=== PATIENT | female | born 1985 | race Caucasian/White ===

== ENCOUNTER 2019-06-07 00:15 | Observation (INO) ==
[2019-06-07 02:14] LABS: Amphetamine Screen,Urine Negative ng/mL (Cutoff=1000); Barbiturate Screen,Urine Negative ng/mL (Cutoff=200); Benzodiazepines Screen,Urine Negative ng/mL (Cutoff=200); Cannabinoid Screen,Urine Negative ng/mL (Cutoff = 50); Cocaine Screen,Urine Negative ng/mL (Cutoff= 300); Opiate Screen,Urine Negative ng/mL (Cutoff=300); Phencyclidine Screen,Urine Negative ng/mL (Cutoff=25)
--- NOTE | 2019-06-07 02:40 | OB/GYN Progress Note ---
Date of Encounter: 06/07/19 Time of Encounter: 02:38 - Assessment and Plan (1) 37 weeks gestation of Current Visit: Yes Status: Acute (2) False labor Current Visit: No Status: Acute No cervical change on serial cervical exams. Patient discharged home with labor and when to return to triage precautions. Patient verbalizes understanding and is in agreement with plan (3) NST (non-stress test) reactive Current Visit: No Status: Acute Baseline 120 Subjective - Subjective Interval history: 37 weeks gestation presents to triage with complaints of contractions. Patient states she is continued have contractions over the last few days increasing in strength and intensity this evening. Reports good movement, denies vaginal bleeding or leaking of fluid. Antepartum ROS: movement normal, contractions, no loss of fluid, no vaginal bleeding Objective - Vital Signs Vital Signs: Intake and Output 06/06/19 06/06/19 06/07/19 15:59 23:59 07:59 Other: Weight 127.913 kg Patient Weight 06/07/19 23:59 Weight 127.913 kg - Exam FHR: auscultation normal FHR comments: Baseline 120 Abdomen: Present: soft, gravid Cervical dilation: 4-5/60/-1
== END 2019-06-07 02:42 | disposition home or self-care (01) ==
LOC: 1NENULAB
PROVIDERS: ADMIT Advanced Practice Midwife; ATTEND Advanced Practice Midwife

== ENCOUNTER 2019-06-08 17:34 | Observation (INO) ==
[2019-06-08 18:49] LABS: Amphetamine Screen,Urine Negative ng/mL (Cutoff=1000); Barbiturate Screen,Urine Negative ng/mL (Cutoff=200); Benzodiazepines Screen,Urine Negative ng/mL (Cutoff=200); Cannabinoid Screen,Urine Negative ng/mL (Cutoff = 50); Cocaine Screen,Urine Negative ng/mL (Cutoff= 300); Opiate Screen,Urine Negative ng/mL (Cutoff=300); Phencyclidine Screen,Urine Negative ng/mL (Cutoff=25)
--- NOTE | 2019-06-08 20:41 | Discharge Summary ---
Date of Encounter: 06/08/19 Time of Encounter: 20:39 - Discharge Diagnosis (1) 37 weeks gestation of Priority: Primary Status: Acute Comments: Admit to observation for labor evaluation and decreased movement (2) NST (non-stress test) reactive Priority: Secondary Status: Acute Comments: FHR 125 bpm, moderate variability, +15 x 15 accelerations, no decelerations. (3) False labor Priority: Secondary Status: Acute Comments: Irregular contractions noted. Patient is 6 cm on arrival with no change in greater than one hour. - Discharge Medications Prescriptions: No Action Vitamin Tablet 1 tab PO DAILY Zofran 4 mg PO PRN PRN PRN Reason: Nausea Ranitidine HCl [Zantac 75] 1 tab PO PRN PRN PRN Reason: Heartburn glyBURIDE [GlyBURIDE] 1 tab PO HS Home Medications: Vitamin Tablet 1 tab PO DAILY 04/24/19 [History] Zofran 4 mg PO PRN PRN 04/24/19 [History] Ranitidine HCl [Zantac 75] 1 tab PO PRN PRN 05/27/19 [History] glyBURIDE [GlyBURIDE] 1 tab PO HS 05/27/19 [History] Allergies/Adverse Reactions: Allergy/AdvReac Type Severity Reaction Status Date / Time Sulfa (Sulfonamide Allergy Hives Verified 06/03/19 03:56 Antibiotics) Data Procedures and tests throughout hospitalization: Laboratory Tests 06/08/19 18:00 Urine Opiates Screen Negative Ur Buprenorphine Scrn Negative Ur Barbiturates Screen Negative Ur Phencyclidine Scrn Negative Ur Amphetamines Screen Negative U Benzodiazepines Scrn Negative Urine Cocaine Screen Negative U Marijuana (THC) Screen Negative Ur Drug Screen Interp See Below Labs on day of discharge: Labs from last 24 hours 06/08/19 18:00 Urine Opiates Screen Negative Ur Buprenorphine Scrn Negative Ur Barbiturates Screen Negative Ur Phencyclidine Scrn Negative Ur Amphetamines Screen Negative U Benzodiazepines Scrn Negative Urine Cocaine Screen Negative U Marijuana (THC) Screen Negative Ur Drug Screen Interp See Below Date of admission: 06/08/19 17:34 Discharging clinician: Farrah Simpson Anticipated date of discharge: 06/08/19 - Patient Status Disposition: Home, Self-Care Condition: Good Functional capacity at discharge: independent ambulation Overall status at discharge: patient is progressing back to baseline - Discharge Instructions Follow Up With: Ayah Hedrick CNM [Advanced Practice Nurse] - Additional Instructions: LABOR AND DELIVERY DISCHARGE INSTRUCTIONS Signs and Symptoms to be Reported to your Doctor Immediately: * Sudden gush, continuous or intermittent lead of fluid from vagina (note the time of gush and color of fluid) * Onset of bright red vaginal bleeding with or without pain (if you had a vaginal exam during this visit you may notice some dark red spotting. This is normal.) * Contractions that are 5 minutes apart (from the beginning of one contraction to the beginning of the next) and last 45-60 seonds; contractions that you can no longer walk, talk or laugh through. * A change in the baby's activity. This could be an increase or decrease in activity. * Severe headache which does not go away with tylenol. * Sudden swelling in the face, hands, arms and/or legs. * Upper abdominal pain - sometimes associated with heartburn or nausea and is not relieved by Maalox, Mylanta or Tums. * Kick Counts __ One hour after a meal, lay down on one side in a quiet place. Count the number of time the baby moves during an hour. 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 States she has not felt the baby move and 2 days. Immediate reactive NST was noted on monitor. Patient stated she had been having contractions for several days so a cervical examination was performed. Patient was found to be 6 cm which was a small change from 2 days prior when she was 5 cm. Patient does have an appointment tomorrow with one of the midwives for routine care. Because she is less than 39 weeks with no cervical change she will be discharged home. When second cervical exam was being completed patient complained of possible fluid leakage. Nitrazine was negative fern was completed and also negative. Vaginosis panel was obtained due to large amount of thick yellow- green discharge in the vagina. If vaginosis panel returns positive patient will be notified and treated appropriately. Time Attestation: Total time spent providing and/or coordinating discharge services: Time Spent: Less than 30 minutes Exam - Constitutional General appearance IM: A&O X 3, pleasant, no acute distress - Respiratory Respiratory exam: Present: CTAB. Absent: respiratory distress - Cardiovascular Cardiovascular exam IM: Present: RRR, +S1, +S2. Absent: irregular rhythm - GI/Abdominal GI/Abdominal exam IM: normal bowel sounds, soft - Rectal Rectal exam: deferred - External exam: normal external exam - Extremities Exam Extremities exam IM: Present: full ROM, normal capillary refill, normal inspection. Absent: calf tenderness - Neurological Exam Neurological exam: alert, normal gait, oriented X3 - VTE Reasons for not Prescribing Prophylaxis: Treatment not Indicated - Low risk for VTE
[2019-06-08 21:27] LABS: Candida DNA Not Detected (Not Detect); Gardnerella DNA Not Detected (Not Detect); Trichomonas DNA Not Detected (Not Detect)
== END 2019-06-08 20:25 | disposition home or self-care (01) ==
LOC: 1NENULAB
PROVIDERS: ADMIT Registered Nurse; ATTEND Registered Nurse

== ENCOUNTER 2019-06-11 23:25 | Inpatient (IN) ==
[2019-06-11] MEDS: Ringers Solution, Lactated 1,000 ML IVC SCH (21:33)
[~2019-06-11 23:25] MED LIST: *HR* Nalbuphine 10 MG/ML AMPUL IVP PRN; *HR* Promethazine 25 MG/ML VIAL IVP ONE; Acetaminophen 325 MG TABLET PO ONE; Famotidine 20 MG/2 ML VIAL IVP PRN; Lidocaine 1% 20 ML MDV INFILT PRN; Metoclopramide 10 MG/2 ML VIAL IVP PRN; Naloxone 0.4 MG/ML INJ IVP PRN; Ondansetron 4 MG/2 ML VIAL IVP PRN; Ringers Solution, Lactated 1,000 ML ONE
[2019-06-11] MEDS ORDERED: Oxytocin 20 units/ LR 1000 mL 20 UNIT/1,000 ML BAG IVC SCH (23:30)
--- NOTE | 2019-06-11 23:45 | OB/GYN History & Physical ---
Date of Encounter: 06/11/19 Time of Encounter: 23:28 Assessment and Plan (1) 37 weeks gestation of Current visit: No Status: Acute Admit for spontaneous labor at 37w5d (2) Spontaneous onset of labor Current visit: Yes Status: Acute Augment with AROM once admitted. (3) Blood type AB+ Current visit: Yes Status: Acute (4) Gestational diabetes mellitus (GDM) controlled on oral hypoglycemic drug Current visit: Yes Status: Acute Continue Glyburide during labor at 1/2 normal dosage. Blood sugars hourly Follow up in 4-12 weeks for 2-hr GTT Qualifiers: Trimester: third trimester Qualified Code(s): O24.415 - Gestational diabetes mellitus in , controlled by oral hypoglycemic drugs History of Present Illness Chief complaint: Labor evaluation HPI: Ms. Armenta is a 33 year old female at 37w5d who presents with complaint of painful contractions. On arrival she was found to be 6 cm. She has been 6cm for 4 days. Her contractions are 3-5 minutes apart. She reports positive movement, denies vaginal bleeding and was questioning possible ROM. Nitrazine was negative. In 2 hours, patient made change to 7cm, therefore will be admitted for labor. Dr. Dunaway, hvac operations technician OB physician, aware and agrees with POC. Patient is a GDM controlled with Glyburide. Blood type AB+ GBS negative HIV negative HBSAG negative T. Pall negative Rubella Immune Past Med Surg Social Fam HX - Past Medical History Source: patient Medical history: no medical history Psychiatric history: no psych history - Past Surgical History Surgical History: other Additional surgical history: lymph node removal, nasal surgery - Social History Smoking Status: Never smoker Smokeless Tobacco Status: No Alcohol use: none Drug use: none Current living situation: Home - Independent Activity Level: Independent ambulation Recent Out of Country Travel Within the Last 8 Weeks: No Exposure or Possible Exposure to Illness During Travel: No - Family History Maternal Grandmother Family Member Ethnicity: Non- Living Status: Still Living Hx Family Cardiac Disorders: Yes (HTN, AFIB) Hx Family Respiratory Disorders: No Hx Family Cancer: No Hx Family GI Disorders: No Hx Family Endocrine Disorder: No Hx Family Neuromuscular Disorders: No Hx Family Neurologic Disorders: No Hx Family HEENT Disorders: No Hx Family Autoimmune Disorders: No Obstetrical History - Pregnancies : 2 Para: 1 Term: 1 : 0 Ab's: 0 Livin Medications and Allergies Vitamin Tablet 1 tab PO DAILY 04/24/19 [History] Zofran 4 mg PO PRN PRN 04/24/19 [History] Ranitidine HCl [Zantac 75] 1 tab PO PRN PRN 05/27/19 [History] glyBURIDE [GlyBURIDE] 1 tab PO HS 05/27/19 [History] Allergy/AdvReac Type Severity Reaction Status Date / Time Sulfa (Sulfonamide Allergy Hives Verified 06/11/19 21:20 Antibiotics) Exam - Constitutional Constitutional: well developed, well nourished, no acute distress, average body habitus - HEENT HEENT: Mucus Membranes Moist - Neck Neck exam: full ROM - Lungs Respiratory exam: CTAB - Cardiovascular Cardiovascular exam: RRR, +S1, +S2 - Breasts Breast: bilateral: normal - Abdomen Abdomen: Present: bowel sounds normal, gravid, non tender - Extremities Extremities exam: full ROM, normal capillary refill, normal inspection - Vulva Vulva: bilateral: normal - Vagina Vagina: Present: normal moisture - Cervix Dilation: 7 (per RN exam) - Uterus Uterus exam: Present: normal size, normal contour - Anus/Rectum Anus/Rectum: Present: normal perianal skin Results All other labs normal. - VTE Reasons for not Prescribing Prophylaxis: Treatment not Indicated - Low risk for VTE
[2019-06-12] MEDS: Ringers Solution, Lactated 1,000 ML IVC SCH (00:26)
--- NOTE | 2019-06-12 01:04 | OB Labor Progress Note ---
Date of Encounter: 06/12/19 Time of Encounter: 00:57 Labor Progress Note - Subjective Subjective: Patient coping well with contractions. - Vital Signs Vital Signs: WNL - Cervix Cervix: 7/90/-1 - Heart Tones Heart Tones: FHR 150 bpm, moderate variability, - [place]: Irregular contractions. - Interventions Interventions: SVE AROM for moderate amount of clear fluid. - Plan Physician notified: Yes Physician notified details: Dr. Dunaway aware of SVE, AROM clear fluid. Plan: Continue expectant management IV pain medication or epidural when patient desires. Consider Pitocin augmentation if needed. Anticipate
[2019-06-12 01:27] LABS: Eosinophils % 0.6 %; Hematocrit 32.9 % (35.3-44.9); Immature Granulocytes % 0.4 % (0-4); Lymphocytes % 7.8 %; Mean Corpuscular HGB Conc 33.4 g/dL (31.6-35.5); Mean Corpuscular Hemoglobin 29.9 pg (28.0-33.3); Mean Corpuscular Volume 89.4 fL (83.0-100.0); Mean Platelet Volume 13.6 fL (9.4-12.4); Monocytes % 6.8 %; Platelet Count 166 K/mcL (140-400); Red Blood Count 3.68 M/mcL (3.82-4.97); Red Cell Distribution Width 13.1 % (11.5-14.5); Segmented Neutrophils % 84.2 %; White Blood Count 8.4 K/mcL (4.3-11.1)
[2019-06-12 01:28] LABS: Basophils % 0.2 %; Eosinophils # 0.1 K/mcL (0.0-0.6); Lymphocytes # 0.7 K/mcL (0.6-4.6); Monocytes # 0.6 K/mcL (0.0-1.3); Neutrophils # 7.1 K/mcL (1.6-8.9)
[2019-06-12] MEDS ORDERED: Epidural Premix (fent/bupiv) 110 ML EP SCH (02:15)
[2019-06-12] MEDS ORDERED: Epidural Premix (fent/bupiv) 110 ML EP ONE (02:18)
--- NOTE | 2019-06-12 03:00 | OB/GYN Procedure Note ---
Delivery - Delivery Date: 06/12/19 Provider: Farrah Simpson Intrapartum events: none Delivery induction: none Delivery augmentation: rupture of membranes Delivery monitor: external FHT, external uterine Anesthesia: local Quantitated Blood Loss: 100 - Infant (s) Infant A Infant Delivery Date: 06/12/19 Infant Delivery Time: 02:22 Presentation: vertex Position: LUCAS Route of delivery: Gender: Female Viability: Viable at 1 minute: 9 at 5 mins: 10 Shoulder Dystocia: not encountered Specimens collected: cord blood Placenta: spontaneous Cord: 3 umbilical vessels - Repair Episiotomy: none Laceration Description: Perineal - 1st Degree - Complications Delivery complications: none Delivery comments: Patient was admitted when she was 7 cm, she rapidly progressed to complete after AROM for clear fluid. Called to room for patient with extreme urge to push at +3 station . Under maternal effort, spontaneous delivery of viable female over first-degree perineal laceration, repaired with 3-0 Vicryl. placed on maternal abdomen for drying and stimulation. Cord clamped and cut after pulsation ceased. Spontaneous delivery of intact placenta, EBL 100 mL's. No nuchal cord, shoulder dystocia, or meconium encountered. Mother and in kangaroo care for 2 hour recovery. - Disposition Mom disposition: stable in LDR disposition: stable in LDR
[2019-06-12] MEDS ORDERED: Rho Immune Globulin 1,500 UNIT SYRINGE IM PRN (05:32)
[2019-06-12] MEDS ORDERED: Lanolin 7 G OINT...G. TP PRN (05:32)
[2019-06-12] MEDS ORDERED: Oxytocin 20 units/ LR 1000 mL 20 UNIT/1,000 ML BAG IVC SCH (05:32)
[2019-06-12] MEDS ORDERED: Ibuprofen 600 MG TABLET PO PRN (05:32)
[2019-06-12] MEDS ORDERED: Measles/Mumps/Rubella Vacc 0.5 ML VIAL SQ PRN (05:32)
[2019-06-12] MEDS ORDERED: Benzocaine/Menthol 56 GM AEROSOL SPRAY TP PRN (05:32)
[2019-06-12] MEDS ORDERED: Acetaminophen 325 MG TABLET PO PRN (05:32)
[2019-06-12] MEDS: Prenatal Vit/FA 1 EACH TABLET PO SCH (09:33)
--- NOTE | 2019-06-13 08:42 | Discharge Summary ---
Date of Encounter: 06/13/19 Time of Encounter: 08:39 - Discharge Diagnosis (1) Vaginal delivery Priority: Primary Status: Acute Comments: S/P vaginal delivery day 2 Pain is well controlled Lochia is light and without clots tolerating regular diet; passing flatus voiding without difficulty Discharge home today POC per consult with Dr Hurtado (2) Gestational diabetes mellitus (GDM) controlled on oral hypoglycemic drug Priority: Secondary Status: Acute Comments: Will need 2 hour GTT at visit. patient notified. Qualifiers: Trimester: third trimester Qualified Code(s): O24.415 - Gestational diabetes mellitus in , controlled by oral hypoglycemic drugs - Discharge Medications Prescriptions: New Breast Pump [BREAST PUMP] 1 each .ROUTE AD #1 each Docusate [Colace] 100 mg PO BID #30 capsule Benzocaine/Menthol [place] [Dermoplast [place]] 1 appl TP QID PRN aerosol PRN Reason: See Comments Lanolin [Lansinoh] 1 appl TP QID PRN oint...g. PRN Reason: Ibuprofen [Motrin] 600 mg PO Q6HR PRN #30 tablet PRN Reason: cramping Acetaminophen [Tylenol] 650 mg PO Q6HR PRN tablet PRN Reason: Mild Pain Continued Vitamin Tablet 1 tab PO DAILY Zofran 4 mg PO PRN PRN PRN Reason: Nausea Ranitidine HCl [Zantac 75] 1 tab PO PRN PRN PRN Reason: Heartburn Discontinued glyBURIDE [GlyBURIDE] 1 tab PO HS Home Medications: Vitamin Tablet 1 tab PO DAILY 04/24/19 [History] Zofran 4 mg PO PRN PRN 04/24/19 [History] Ranitidine HCl [Zantac 75] 1 tab PO PRN PRN 05/27/19 [History] Acetaminophen [Tylenol] 650 mg PO Q6HR PRN tablet 06/13/19 [Rx] Benzocaine/Menthol [place] [Dermoplast [place]] 1 appl TP QID PRN aerosol 06/13/19 [Rx] Breast Pump [BREAST PUMP] 1 each .ROUTE AD #1 each 06/13/19 [Rx] Docusate [Colace] 100 mg PO BID #30 capsule 06/13/19 [Rx] Ibuprofen [Motrin] 600 mg PO Q6HR PRN #30 tablet 06/13/19 [Rx] Lanolin [Lansinoh] 1 appl TP QID PRN oint...g. 06/13/19 [Rx] Allergies/Adverse Reactions: Allergy/AdvReac Type Severity Reaction Status Date / Time Sulfa (Sulfonamide Allergy Hives Verified 06/11/19 21:20 Antibiotics) Data Procedures and tests throughout hospitalization: Laboratory Tests 06/12/19 06/12/19 06/12/19 00:00 00:00 01:11 WBC 8.4 RBC 3.68 L Hgb 11.0 L Hct 32.9 L MCV 89.4 MCH 29.9 MCHC 33.4 RDW 13.1 Plt Count 166 MPV 13.6 H Immature Gran % 0.4 Seg Neutrophils % 84.2 Lymphocytes % 7.8 Monocytes % 6.8 Eosinophils % 0.6 Basophils % 0.2 Neutrophils # 7.1 Lymphocytes # 0.7 Monocytes # 0.6 Eosinophils # 0.1 Basophils # 0.0 Glucose 74 POC Glucose 103 H 06/12/19 08:20 WBC RBC Hgb Hct MCV MCH MCHC RDW Plt Count MPV Immature Gran % Seg Neutrophils % Lymphocytes % Monocytes % Eosinophils % Basophils % Neutrophils # Lymphocytes # Monocytes # Eosinophils # Basophils # Glucose POC Glucose 120 H Date of admission: 06/11/19 23:25 Primary care physician: PCP NONE Consults: 06/12/19 05:32 Consult to Applications Processor [CONS] Routine Comment: Vaginal delivery, consult needed Discharging clinician: Ayah Hedrick Anticipated date of discharge: 06/13/19 - Patient Status Disposition: Home, Self-Care Condition: Good Functional capacity at discharge: independent ambulation Overall status at discharge: patient is progressing back to baseline - Discharge Instructions Follow Up With: NONE,PCP [Primary Care Provider] - Farrah Simpson CNM [Advanced Practice Nurse] - - Diet and Activity Activity: increase activity as tolerated Diet: regular diet Hospital Course Reason for admission: IUP at term Episiotomy: none Laceration: 1st degree Other procedures: none complications: none Discharge diagnosis: IUP at term delivered [place] baby: female Time Attestation: Total time spent providing and/or coordinating discharge services: Time Spent: Less than 30 minutes Exam - Constitutional Vitals: Temp Pulse Resp BP Pulse Ox 97.9 F 86 17 103/62 97 06/12/19 19:00 06/12/19 19:00 06/12/19 19:00 06/12/19 19:00 06/12/19 19:00 General appearance IM: cooperative, A&O X 3, pleasant - Respiratory Respiratory exam: Present: CTAB - Cardiovascular Cardiovascular exam IM: Present: RRR, +S1, +S2 - GI/Abdominal GI/Abdominal exam IM: normal bowel sounds, soft - Rectal Rectal exam: deferred - Uterine Tone: Firm Uterus Position: 2 Fingers Below Umbilicus, Midline - Extremities Exam Extremities exam IM: Present: normal capillary refill, normal inspection, radial pulses palpable and symmetrical - Neurological Exam Neurological exam: alert, oriented X3
[2019-06-13 09:12] VITALS: BP 101/64
[2019-06-13] MEDS: Prenatal Vit/FA 1 EACH TABLET PO SCH (11:29)
== END 2019-06-13 14:00 | disposition home or self-care (01) | DRG 560 ==
LOC: 1NENULAB → 1NENUOBS 06-12 05:24
PROVIDERS: ADMIT Registered Nurse; ATTEND Registered Nurse